=== PATIENT | male | born 1945 | race Caucasian/White ===

== ENCOUNTER → 2017-10-04 | Outpatient (CLI) | payer MEDICARE, OTHER ==
[~2017-10-04] MED LIST: ALEVE220 MG PO; COUMADIN 5 MG TA5 M1 PO; FLEXERIL PO; GLUCOSAMINE HC500 MG PO; NEURONTIN250 MG/5 M PO; PACERONE 200 M200 M1 PO; SUDOGEST PE10 MG PO
== END ==
LOC: M.WC 07:59
DX: L97.811 Non-pressure chronic ulcer of other part of right lower leg limited to breakdown of skin (principal); S51.811A Laceration without foreign body of right forearm, initial encounter; I25.10 Atherosclerotic heart disease of native coronary artery without angina pectoris; I50.9 Heart failure, unspecified; I48.91 Unspecified atrial fibrillation; E66.9 Obesity, unspecified; M19.90 Unspecified osteoarthritis, unspecified site; G62.9 Polyneuropathy, unspecified; G47.30 Sleep apnea, unspecified; F32.9 Major depressive disorder, single episode, unspecified; Z87.891 Personal history of nicotine dependence; Z86.718 Personal history of other venous thrombosis and embolism; X58.XXXA Exposure to other specified factors, initial encounter; Y93.89 Activity, other specified; Y92.89 Other specified places as the place of occurrence of the external cause; Y99.8 Other external cause status

== ENCOUNTER → 2017-10-11 | Outpatient (CLI) | payer MEDICARE, OTHER | LOC: M.WC 00:09 | DX: L97.811 Non-pressure chronic ulcer of other part of right lower leg limited to breakdown of skin (principal); S51.811A Laceration without foreign body of right forearm, initial encounter; I25.10 Atherosclerotic heart disease of native coronary artery without angina pectoris; I87.2 Venous insufficiency (chronic) (peripheral); E66.9 Obesity, unspecified; M19.90 Unspecified osteoarthritis, unspecified site; I48.91 Unspecified atrial fibrillation; I50.9 Heart failure, unspecified; G47.30 Sleep apnea, unspecified; H91.90 Unspecified hearing loss, unspecified ear; F32.9 Major depressive disorder, single episode, unspecified; Z68.30 Body mass index [BMI] 30.0-30.9, adult; Z86.718 Personal history of other venous thrombosis and embolism; Z87.891 Personal history of nicotine dependence; X58.XXXA Exposure to other specified factors, initial encounter; Y93.89 Activity, other specified; Y92.89 Other specified places as the place of occurrence of the external cause; Y99.8 Other external cause status ==

== ENCOUNTER → 2017-10-14 | Outpatient (CLI) | payer MEDICARE, OTHER | LOC: M.WC 03:57 | DX: L97.811 Non-pressure chronic ulcer of other part of right lower leg limited to breakdown of skin (principal); S51.811D Laceration without foreign body of right forearm, subsequent encounter; I87.2 Venous insufficiency (chronic) (peripheral); I25.10 Atherosclerotic heart disease of native coronary artery without angina pectoris; E66.9 Obesity, unspecified; I48.91 Unspecified atrial fibrillation; I50.9 Heart failure, unspecified; M19.90 Unspecified osteoarthritis, unspecified site; G62.9 Polyneuropathy, unspecified; G47.30 Sleep apnea, unspecified; F32.9 Major depressive disorder, single episode, unspecified; Z87.891 Personal history of nicotine dependence; Z86.718 Personal history of other venous thrombosis and embolism; X58.XXXD Exposure to other specified factors, subsequent encounter ==

== ENCOUNTER → 2017-11-01 | Outpatient (CLI) | payer MEDICARE, OTHER | LOC: M.WC 00:13 | DX: L97.811 Non-pressure chronic ulcer of other part of right lower leg limited to breakdown of skin (principal); S51.811D Laceration without foreign body of right forearm, subsequent encounter; I87.2 Venous insufficiency (chronic) (peripheral); I50.9 Heart failure, unspecified; I25.10 Atherosclerotic heart disease of native coronary artery without angina pectoris; M19.90 Unspecified osteoarthritis, unspecified site; E66.9 Obesity, unspecified; I48.91 Unspecified atrial fibrillation; G47.30 Sleep apnea, unspecified; G62.9 Polyneuropathy, unspecified; F32.9 Major depressive disorder, single episode, unspecified; Z86.718 Personal history of other venous thrombosis and embolism; Z87.891 Personal history of nicotine dependence; Z68.30 Body mass index [BMI] 30.0-30.9, adult; X58.XXXD Exposure to other specified factors, subsequent encounter ==

== ENCOUNTER → 2017-11-08 | Outpatient (CLI) | payer MEDICARE, OTHER | LOC: M.WC 01:15 | DX: L97.811 Non-pressure chronic ulcer of other part of right lower leg limited to breakdown of skin (principal); I87.2 Venous insufficiency (chronic) (peripheral); I25.10 Atherosclerotic heart disease of native coronary artery without angina pectoris; I50.9 Heart failure, unspecified; M19.90 Unspecified osteoarthritis, unspecified site; I48.91 Unspecified atrial fibrillation; E66.9 Obesity, unspecified; G62.9 Polyneuropathy, unspecified; G47.30 Sleep apnea, unspecified; F32.9 Major depressive disorder, single episode, unspecified; Z87.891 Personal history of nicotine dependence; Z86.718 Personal history of other venous thrombosis and embolism ==

== ENCOUNTER → 2017-11-15 | Outpatient (CLI) | payer MEDICARE, OTHER | LOC: M.WC 00:53 | DX: L97.811 Non-pressure chronic ulcer of other part of right lower leg limited to breakdown of skin (principal); T79.2XXD Traumatic secondary and recurrent hemorrhage and seroma, subsequent encounter; I87.2 Venous insufficiency (chronic) (peripheral); I25.10 Atherosclerotic heart disease of native coronary artery without angina pectoris; I48.91 Unspecified atrial fibrillation; I50.9 Heart failure, unspecified; E66.9 Obesity, unspecified; G62.9 Polyneuropathy, unspecified; G47.30 Sleep apnea, unspecified; M19.90 Unspecified osteoarthritis, unspecified site; F32.9 Major depressive disorder, single episode, unspecified; Z86.718 Personal history of other venous thrombosis and embolism; Z87.891 Personal history of nicotine dependence; X58.XXXD Exposure to other specified factors, subsequent encounter ==

== ENCOUNTER → 2017-11-22 | Outpatient (CLI) | payer MEDICARE, OTHER | LOC: M.WC 00:58 | DX: L97.811 Non-pressure chronic ulcer of other part of right lower leg limited to breakdown of skin (principal); I87.2 Venous insufficiency (chronic) (peripheral); I50.9 Heart failure, unspecified; I25.10 Atherosclerotic heart disease of native coronary artery without angina pectoris; E66.9 Obesity, unspecified; I48.91 Unspecified atrial fibrillation; M19.90 Unspecified osteoarthritis, unspecified site; G62.9 Polyneuropathy, unspecified; G47.30 Sleep apnea, unspecified; F32.9 Major depressive disorder, single episode, unspecified; Z86.718 Personal history of other venous thrombosis and embolism; Z87.891 Personal history of nicotine dependence; Z68.30 Body mass index [BMI] 30.0-30.9, adult ==

== ENCOUNTER → 2018-10-19 | Outpatient (CLI) | payer MEDICARE, OTHER | LOC: M.RAD 11:53 | DX: I50.42 Chronic combined systolic (congestive) and diastolic (congestive) heart failure (principal); J81.1 Chronic pulmonary edema; R06.03 Acute respiratory distress ==

== ENCOUNTER 2018-12-22 10:07 | Inpatient (IN) | payer MEDICARE, OTHER ==
[~2018-12-22] VITALS: Ht 188 cm; Wt 103.0 kg
[~2018-12-22 10:07] MED LIST changes: +NEURONTIN 400400 M1 PO
[2018-12-22 10:18] VITALS: BP 95/47
[2018-12-22] MEDS ORDERED: COZAAR 25 MG TA25 M1 PO (10:24)
[2018-12-22] MEDS ORDERED: LOPRESSOR25 PO (10:24)
[2018-12-22] MEDS ORDERED: TORSEMIDE10 MG PO (10:25)
[2018-12-22] MEDS ORDERED: SYNTHROID25 MC1 PO (10:25)
[2018-12-22] MEDS ORDERED: ALLOPURINOL 10100 M1 PO (10:25)
[2018-12-22] MEDS ORDERED: SPIRONOLACTONE25 M1 PO (10:25)
[2018-12-22] MEDS ORDERED: DIGOXIN125 MCG PO (10:35)
[2018-12-22] MEDS ORDERED: B12INJ IM (10:35)
[2018-12-22] MEDS ORDERED: DOXYCYCLINE 10100 MG PO (10:36)
[2018-12-22] MEDS ORDERED: TRAMADOL 50 MG50 MG PO (10:37)
[2018-12-22 10:38] LABS: ABSOLUTE EOSINOPHILS 0.1 thou/uL (0.0-0.7); ABSOLUTE LYMPHOCYTES 0.8 thou/uL (0.8-5.3); ABSOLUTE MONOCYTES 0.6 thou/uL (0.0-1.2); ABSOLUTE NEUTROPHILS 3.5 thou/uL (1.6-8.1); BASOPHILS 0.8 %; EOSINOPHILS 1.5 %; HEMATOCRIT 37.2 % (42.0-52.0); HEMOGLOBIN 12.5 gm/dL (14.0-18.0); LYMPHOCYTES 15.4 %; MCH 30.9 pg (26.0-34.0); MCHC 33.6 g/dL (28.0-37.0); MONOCYTES 11.2 %; MPV 7.6 fl. (7.2-11.1); NUCLEATED RBCS 0 /100WBC; PLATELET COUNT* 202 thou/uL (150-400); POLYS 71.1 %; RBC 4.04 mil/uL (4.50-6.00); RDW-CV 14.8 % (10.5-14.5); WBC 4.9 thou/uL (4.0-11.0)
[2018-12-22 10:45] LABS: CREATININE 1.3 mg/dL (0.6-1.3); POTASSIUM 3.9 mmol/L (3.5-5.1)
[2018-12-22 10:50] LABS: ALBUMIN 3.4 g/dL (3.4-5.0)
--- NOTE | 2018-12-22 10:50 | NUR ---
PT ASKED NURSE TO PLACE [facility] CATHETER BECAUSE "IT'S EASIER FOR ME". PT AND PT FURTHER EXPLAINED THAT IN PAST, HE HAD DIFFICULTY STANDING TO USE URINAL AND WOULD MAKE A MESS ALL OVER BED. NURSE EDUCATED PT AND PT OF INFECTION RISK AND NURSE NOT TO PLACE [facility] PER PROTOCOL, INABILITY TO PLACE OUT OF CONVENIENCE. PT SHOOK HER HEAD SIDE TO SIDE. PT VERBALIZED NEED TO USE RESTROOM. NURSE ASSISTED PT TO STAND ON SIDE OF BED AND USE URINAL. PT TOLERATED WELL. PT DID NOT URINATE, STATES "NOW I DON'T NEED TO". CALL LIGHT WITHIN REACH.
[2018-12-22 11:10] LABS: APTT 69.3 Seconds (25.0-31.3); INR 3.8; PROTIME 36.8 Seconds (9.20-11.50); TROPONIN-I LEVEL <0.06 ng/mL (<0.06)
[2018-12-22 11:14] LABS: URINE BILIRUBIN NEGATIVE (Negative); URINE BLOOD NEGATIVE (Negative); URINE CLARITY CLEAR; URINE COLOR YELLOW; URINE GLUCOSE-RANDOM NEGATIVE (Negative); URINE KETONES NEGATIVE (Negative); URINE LEUKOCYTES-REFLEX NEGATIVE (Negative); URINE NITRITE-REFLEX NEGATIVE (Negative); URINE PROTEIN NEGATIVE (Negative); URINE SPECIFIC GRAVITY 1.015 (1.005-1.030); URINE UROBILINOGEN 0.2 E.U./dl (0.2-1.0)
[2018-12-22 11:58] VITALS: BP 93/51
[2018-12-22 12:45] VITALS: BP 132/106
[2018-12-22] MEDS ORDERED: ACIDOPHILUS1 EAC4 PO (18:10)
[2018-12-22] MEDS ORDERED: VITAMINC500 PO (18:10)
[2018-12-22] MEDS ORDERED: TYLENOL EXTRA500 MG PO (18:11)
--- NOTE | 2018-12-22 19:37 | NUR ---
PATIENT ARRIVED FROM ER THIS AFTERNOON. ASSESSMENT, VITALS AND HISTORY TAKEN AND DOCUMENTED. PATIENT RLE HAS 4+ PITTING EDEMA AND IS WARM AND RED. PATIENT SEEN BY WOUND CARE NURSE. PATIENT IS UP TO BEDSIDE TO USE URINAL. PATIENT HAS BEEN UP TO BATHROOM WITH STANDBY ASSIST. PATIENT HAS COMPLAINTS OF PAIN TO RLE BUT HAS DENIED NEED FOR PAIN MEDICATION SINCE ARRIVAL TO UNIT. PATIENT HAS GOOD APPETITE. PATIENT DENIES ANY NEEDS AT THIS TIME. CALL LIGHT WITHIN REACH.
[2018-12-22 21:03] VITALS: BP 91/57
[2018-12-23 00:23] VITALS: BP 104/61
[2018-12-23 03:36] VITALS: BP 110/68
--- NOTE | 2018-12-23 05:34 | NUR ---
PT/INR STILL HIGH AT 3.8 PT 36.8. RLE ELEVATED ON 3 PILLOWS EDEMA AT 4+ AND RED AND WARM TO THE TOUCH. HE DID NOT REQUEST ANY PAIN MEDS UPON ASSESSMENT. HE WAS ABLE TO SLEEP THROUGH THE NIGHT. HAD TO REVISIT THE ISSUE WITH HIS COUMADIN AND INR LEVELS/ CONTINUE VANCOMYCIN AND SCHEDULED. WILL CONTINUE TO MONITOR.
[2018-12-23 08:00] VITALS: BP 109/65
[2018-12-23 13:07] LABS: INR 3.7
[2018-12-23 16:00] VITALS: BP 118/68
--- NOTE | 2018-12-23 17:20 | NUR ---
PT UP IN ROOM WITH WALKER AND SB ASSIST. IVF INFUSING. BLE ELEVATED WHILE IN BED. PT DENIES NEED FOR PAIN MEDS. PT UPSET THAT HE IS NOT GETTING COUMADIN D/T HIS INR LEVELS BEING HIGH DESPITE BEING EDUCATED. TOLERATING PO WELL.
[2018-12-23 22:20] VITALS: BP 105/62
--- NOTE | 2018-12-24 06:48 | NUR ---
PT ALERT AND ORIENTED. VITALS STABLE RA. MEDS GIVEN ORDERED. RT LOWER LEG STILL RED AND SWOLLEN. BLEEDING FROM IV SITE, NEW IV APPLIED AND FLUID RUNNING ORDERED. DRESSING ON LT KNEE CLEAN AND DRY. HOURLY ROUNDING COMPLETED. WILL CONTINUE TO MONITOR.
[2018-12-24 08:20] VITALS: BP 87/64
[2018-12-24 08:53] LABS: INR 2.8; PROTIME 27.8 Seconds (9.20-11.50)
[2018-12-24 16:00] VITALS: BP 109/71
--- NOTE | 2018-12-24 17:31 | NUR ---
PATIENT RESTING IN BED WITH FEET ELEVATED ON PILLOWS. PATIENT IS UP STANDBY ASSIST IN ROOM. PATIENT DENIES ANY PAIN. PATIENT HAS GOOD APPETITE. PATIENT DENIES ANY NEEDS AT THIS TIME. CALL LIGHT WITHIN REACH.
[2018-12-24 21:20] VITALS: BP 104/61
[2018-12-25 04:05] LABS: INR 2.4; PROTIME 23.4 Seconds (9.20-11.50)
--- NOTE | 2018-12-25 06:13 | NUR ---
PT SLEEPING THROUGH THE NIGHT WITH HOME CPAP ON. LEGS ELEVATED ON PILLOWS. MEDS GIVEN ORDERED. PT DENIED ANY PAIN. HOURLY ROUNDING COMPLETED. WILL CONTINUE TO MONITOR.
[2018-12-25 07:50] VITALS: BP 109/61
[2018-12-25 17:00] VITALS: BP 114/63
--- NOTE | 2018-12-25 18:49 | NUR ---
PATIENT RESTING IN BED. PATIENT DENIES ANY PAIN. PATIENT IS UP WITH STANDBY ASSIST WITH WALKER. PATIENT'S RIGHT LEG REMAINS DARK PINK AND WITH 2+ EDEMA. PATIENT HAS GOOD APPETITE. PATIEN TDENIES ANY NEEDS AT THIS TIME. CALL LIGHT WITHIN REACH.
[2018-12-25 21:53] VITALS: BP 111/62
[2018-12-26 04:27] LABS: INR 2.2; PROTIME 22.2 Seconds (9.20-11.50)
--- NOTE | 2018-12-26 05:15 | NUR ---
PT SLEEPING THROUGHT THE NIGHT WITH HOME CPAP ON. VITALS STABLE. PT DENIED PAIN. MEDS GIVEN ORDERED. [employer] DRESSINGS CLEAN AND INTACT. LEGS ELEVATED ON PILLOW. IV FLUID RUNNING ORDERED. HOURLY ROUNDING COMPLETED. WILL CONTINUE TO MONITOR.
[2018-12-26 07:30] VITALS: BP 117/68
[2018-12-26 11:23] VITALS: BP 117/68
[2018-12-26] MEDS ORDERED: DOXYCYCLINE 10100 MG PO (13:39)
[2018-12-26] MEDS ORDERED: ENOXAPARIN100 MG/11 SUBQ (14:14)
--- NOTE | 2018-12-26 14:37 | NUR ---
PATIENT DISCHARGED TO HOME AT THIS TIME WITH SPOUSE. IV DC'D. DRESSING REAPPLIED TO LEFT ELBOW. PATIENT REMINDED WHILE AT HOME TO KEEP RIGHT LEG ELEVATED. VERBALIZES UNDERSTANDING OF PAPERWORK AND SCRIPTS. PATIENT GIVEN ONE TIME LOVENOX SHOT PER ORDERS. PATIENT TAKEN OUT VIA WHEELCHAIR WITH ALL BELONGINGS.
== END 2018-12-26 14:41 | disposition home or self-care (01) | DRG 603 ==
LOC: M.ERS 10:07 → M.TBA-ER 10:57 → M.ORTHSURG 10:57
PROVIDERS: Physician Assistant; ADMIT Internal Medicine
DX: L03.115 Cellulitis of right lower limb (principal); I50.32 Chronic diastolic (congestive) heart failure; I95.9 Hypotension, unspecified; M10.9 Gout, unspecified; Z79.01 Long term (current) use of anticoagulants; Z88.1 Allergy status to other antibiotic agents; Z88.8 Allergy status to other drugs, medicaments and biological substances; Z95.0 Presence of cardiac pacemaker; Z79.899 Other long term (current) drug therapy; Z87.891 Personal history of nicotine dependence

== ENCOUNTER → 2019-01-03 | Outpatient (CLI) | payer MEDICARE, OTHER ==
[~2019-01-03] MED LIST changes: +ACIDOPHILUS1 EAC4 PO; +ALLOPURINOL 10100 M1 PO; +B12INJ IM; +COZAAR 25 MG TA25 M1 PO; +DIGOXIN125 MCG PO; +DOXYCYCLINE 10100 MG PO; +ENOXAPARIN100 MG/11 SUBQ; +LOPRESSOR25 PO; +SPIRONOLACTONE25 M1 PO; +SYNTHROID25 MC1 PO; +TORSEMIDE10 MG PO; +TRAMADOL 50 MG50 MG PO; +TYLENOL EXTRA500 MG PO; +VITAMINC500 PO
== END ==
LOC: M.WC 07:49
DX: L97.811 Non-pressure chronic ulcer of other part of right lower leg limited to breakdown of skin (principal); S81.012A Laceration without foreign body, left knee, initial encounter; G62.9 Polyneuropathy, unspecified; H91.90 Unspecified hearing loss, unspecified ear; I89.0 Lymphedema, not elsewhere classified; I25.10 Atherosclerotic heart disease of native coronary artery without angina pectoris; I50.9 Heart failure, unspecified; I48.91 Unspecified atrial fibrillation; G47.30 Sleep apnea, unspecified; M19.90 Unspecified osteoarthritis, unspecified site; F32.9 Major depressive disorder, single episode, unspecified; Z87.891 Personal history of nicotine dependence; Z86.718 Personal history of other venous thrombosis and embolism; Z95.4 Presence of other heart-valve replacement; Z95.0 Presence of cardiac pacemaker; Z96.649 Presence of unspecified artificial hip joint; X58.XXXA Exposure to other specified factors, initial encounter; Y93.89 Activity, other specified; Y92.89 Other specified places as the place of occurrence of the external cause; Y99.8 Other external cause status

== ENCOUNTER → 2019-01-10 | Outpatient (CLI) | payer MEDICARE, OTHER | LOC: M.WC 04:51 | DX: L97.811 Non-pressure chronic ulcer of other part of right lower leg limited to breakdown of skin (principal); S81.012D Laceration without foreign body, left knee, subsequent encounter; S90.822A Blister (nonthermal), left foot, initial encounter; E66.9 Obesity, unspecified; G47.30 Sleep apnea, unspecified; H91.90 Unspecified hearing loss, unspecified ear; I25.10 Atherosclerotic heart disease of native coronary artery without angina pectoris; I48.91 Unspecified atrial fibrillation; I89.0 Lymphedema, not elsewhere classified; I50.9 Heart failure, unspecified; G62.9 Polyneuropathy, unspecified; M19.90 Unspecified osteoarthritis, unspecified site; F32.9 Major depressive disorder, single episode, unspecified; Z86.718 Personal history of other venous thrombosis and embolism; Z87.891 Personal history of nicotine dependence; W19.XXXA Unspecified fall, initial encounter; Y93.89 Activity, other specified; Y92.89 Other specified places as the place of occurrence of the external cause; Y99.8 Other external cause status ==

== ENCOUNTER → 2019-01-13 | Outpatient (CLI) | payer MEDICARE, OTHER | LOC: M.WC 09:50 | DX: L97.811 Non-pressure chronic ulcer of other part of right lower leg limited to breakdown of skin (principal); S81.012D Laceration without foreign body, left knee, subsequent encounter; S90.822D Blister (nonthermal), left foot, subsequent encounter; E66.9 Obesity, unspecified; I89.0 Lymphedema, not elsewhere classified; I87.2 Venous insufficiency (chronic) (peripheral); I25.10 Atherosclerotic heart disease of native coronary artery without angina pectoris; I48.91 Unspecified atrial fibrillation; I50.9 Heart failure, unspecified; H91.90 Unspecified hearing loss, unspecified ear; G47.30 Sleep apnea, unspecified; M19.90 Unspecified osteoarthritis, unspecified site; F32.9 Major depressive disorder, single episode, unspecified; Z86.718 Personal history of other venous thrombosis and embolism; Z87.891 Personal history of nicotine dependence; Z95.810 Presence of automatic (implantable) cardiac defibrillator; W19.XXXD Unspecified fall, subsequent encounter ==

== ENCOUNTER → 2019-01-17 | Outpatient (CLI) | payer MEDICARE, OTHER | LOC: M.WC 05:00 | DX: L97.811 Non-pressure chronic ulcer of other part of right lower leg limited to breakdown of skin (principal); I87.2 Venous insufficiency (chronic) (peripheral); S81.012D Laceration without foreign body, left knee, subsequent encounter; S81.011D Laceration without foreign body, right knee, subsequent encounter; S90.822D Blister (nonthermal), left foot, subsequent encounter; L03.116 Cellulitis of left lower limb; I89.0 Lymphedema, not elsewhere classified; E66.9 Obesity, unspecified; I50.9 Heart failure, unspecified; I48.91 Unspecified atrial fibrillation; I25.10 Atherosclerotic heart disease of native coronary artery without angina pectoris; G62.9 Polyneuropathy, unspecified; G47.30 Sleep apnea, unspecified; H91.90 Unspecified hearing loss, unspecified ear; M19.90 Unspecified osteoarthritis, unspecified site; F32.9 Major depressive disorder, single episode, unspecified; Z86.718 Personal history of other venous thrombosis and embolism; Z87.891 Personal history of nicotine dependence; W19.XXXD Unspecified fall, subsequent encounter ==

== ENCOUNTER → 2019-01-26 | Outpatient (CLI) | payer MEDICARE, OTHER | LOC: M.WC 04:32 | DX: L97.811 Non-pressure chronic ulcer of other part of right lower leg limited to breakdown of skin (principal); S81.012D Laceration without foreign body, left knee, subsequent encounter; S90.822D Blister (nonthermal), left foot, subsequent encounter; S81.011D Laceration without foreign body, right knee, subsequent encounter; I89.0 Lymphedema, not elsewhere classified; I48.91 Unspecified atrial fibrillation; I50.9 Heart failure, unspecified; L03.116 Cellulitis of left lower limb; I25.10 Atherosclerotic heart disease of native coronary artery without angina pectoris; E66.9 Obesity, unspecified; M19.90 Unspecified osteoarthritis, unspecified site; G47.30 Sleep apnea, unspecified; F32.9 Major depressive disorder, single episode, unspecified; Z87.891 Personal history of nicotine dependence; Z68.29 Body mass index [BMI] 29.0-29.9, adult; Z86.718 Personal history of other venous thrombosis and embolism; X58.XXXD Exposure to other specified factors, subsequent encounter ==

== ENCOUNTER → 2019-01-31 | Outpatient (CLI) | payer MEDICARE, OTHER | LOC: M.WC 05:17 | DX: S81.011D Laceration without foreign body, right knee, subsequent encounter (principal); S51.011A Laceration without foreign body of right elbow, initial encounter; S90.822D Blister (nonthermal), left foot, subsequent encounter; S80.12XA Contusion of left lower leg, initial encounter; L03.116 Cellulitis of left lower limb; I89.0 Lymphedema, not elsewhere classified; I25.10 Atherosclerotic heart disease of native coronary artery without angina pectoris; E66.9 Obesity, unspecified; G62.9 Polyneuropathy, unspecified; G47.30 Sleep apnea, unspecified; H91.90 Unspecified hearing loss, unspecified ear; I48.91 Unspecified atrial fibrillation; I50.9 Heart failure, unspecified; M19.90 Unspecified osteoarthritis, unspecified site; F32.9 Major depressive disorder, single episode, unspecified; Z87.891 Personal history of nicotine dependence; Z86.718 Personal history of other venous thrombosis and embolism; Z68.29 Body mass index [BMI] 29.0-29.9, adult; W19.XXXA Unspecified fall, initial encounter; Y93.89 Activity, other specified; Y92.89 Other specified places as the place of occurrence of the external cause; Y99.8 Other external cause status ==

== ENCOUNTER → 2019-02-07 | Outpatient (CLI) | payer MEDICARE, OTHER | LOC: M.WC 05:12 | DX: S81.011D Laceration without foreign body, right knee, subsequent encounter (principal); S51.011D Laceration without foreign body of right elbow, subsequent encounter; S90.822D Blister (nonthermal), left foot, subsequent encounter; S80.12XD Contusion of left lower leg, subsequent encounter; E66.9 Obesity, unspecified; H91.90 Unspecified hearing loss, unspecified ear; G47.30 Sleep apnea, unspecified; G62.9 Polyneuropathy, unspecified; I48.91 Unspecified atrial fibrillation; I25.10 Atherosclerotic heart disease of native coronary artery without angina pectoris; I50.9 Heart failure, unspecified; I89.0 Lymphedema, not elsewhere classified; M19.90 Unspecified osteoarthritis, unspecified site; F32.9 Major depressive disorder, single episode, unspecified; Z86.718 Personal history of other venous thrombosis and embolism; Z87.891 Personal history of nicotine dependence; W19.XXXD Unspecified fall, subsequent encounter ==

== ENCOUNTER → 2019-02-14 | Outpatient (CLI) | payer MEDICARE, OTHER | LOC: M.WC 05:00 | DX: S81.011D Laceration without foreign body, right knee, subsequent encounter (principal); E66.9 Obesity, unspecified; G62.9 Polyneuropathy, unspecified; G47.30 Sleep apnea, unspecified; H91.90 Unspecified hearing loss, unspecified ear; I25.10 Atherosclerotic heart disease of native coronary artery without angina pectoris; I48.91 Unspecified atrial fibrillation; I50.9 Heart failure, unspecified; I89.0 Lymphedema, not elsewhere classified; M19.90 Unspecified osteoarthritis, unspecified site; F32.9 Major depressive disorder, single episode, unspecified; Z87.891 Personal history of nicotine dependence; Z86.718 Personal history of other venous thrombosis and embolism; Z95.810 Presence of automatic (implantable) cardiac defibrillator; W19.XXXD Unspecified fall, subsequent encounter ==

== ENCOUNTER → 2019-03-16 | Outpatient (CLI) | payer MEDICARE, OTHER | LOC: M.WC 05:01 | DX: S91.012A Laceration without foreign body, left ankle, initial encounter (principal); S81.801D Unspecified open wound, right lower leg, subsequent encounter; S91.302D Unspecified open wound, left foot, subsequent encounter; S51.801D Unspecified open wound of right forearm, subsequent encounter; I89.0 Lymphedema, not elsewhere classified; E66.9 Obesity, unspecified; G62.9 Polyneuropathy, unspecified; G47.30 Sleep apnea, unspecified; H91.90 Unspecified hearing loss, unspecified ear; I48.91 Unspecified atrial fibrillation; I25.10 Atherosclerotic heart disease of native coronary artery without angina pectoris; I50.9 Heart failure, unspecified; M19.90 Unspecified osteoarthritis, unspecified site; F32.9 Major depressive disorder, single episode, unspecified; Z87.891 Personal history of nicotine dependence; W19.XXXA Unspecified fall, initial encounter; Y93.89 Activity, other specified; Y92.89 Other specified places as the place of occurrence of the external cause; Y99.8 Other external cause status ==

== ENCOUNTER → 2019-03-23 | Outpatient (CLI) | payer MEDICARE, OTHER | LOC: M.WC 03-22 09:00 | DX: S91.002D Unspecified open wound, left ankle, subsequent encounter (principal); I89.0 Lymphedema, not elsewhere classified; I87.2 Venous insufficiency (chronic) (peripheral); I50.9 Heart failure, unspecified; I48.91 Unspecified atrial fibrillation; I25.10 Atherosclerotic heart disease of native coronary artery without angina pectoris; E66.9 Obesity, unspecified; M19.90 Unspecified osteoarthritis, unspecified site; G62.9 Polyneuropathy, unspecified; G47.30 Sleep apnea, unspecified; F32.9 Major depressive disorder, single episode, unspecified; Z86.718 Personal history of other venous thrombosis and embolism; Z87.891 Personal history of nicotine dependence; X58.XXXD Exposure to other specified factors, subsequent encounter ==

== ENCOUNTER → 2019-03-28 | Outpatient (CLI) | payer MEDICARE, OTHER | LOC: M.WC 04:51 | DX: S91.002D Unspecified open wound, left ankle, subsequent encounter (principal); S81.801D Unspecified open wound, right lower leg, subsequent encounter; S91.302D Unspecified open wound, left foot, subsequent encounter; S51.801D Unspecified open wound of right forearm, subsequent encounter; I89.0 Lymphedema, not elsewhere classified; I48.91 Unspecified atrial fibrillation; I50.9 Heart failure, unspecified; I25.10 Atherosclerotic heart disease of native coronary artery without angina pectoris; E66.9 Obesity, unspecified; H91.90 Unspecified hearing loss, unspecified ear; G62.9 Polyneuropathy, unspecified; G47.30 Sleep apnea, unspecified; M19.90 Unspecified osteoarthritis, unspecified site; F32.9 Major depressive disorder, single episode, unspecified; Z86.718 Personal history of other venous thrombosis and embolism; Z87.891 Personal history of nicotine dependence; W22.8XXD Striking against or struck by other objects, subsequent encounter ==

== ENCOUNTER → 2019-03-31 | Outpatient (CLI) | payer MEDICARE, OTHER | LOC: M.WC 04:56 | DX: S91.012D Laceration without foreign body, left ankle, subsequent encounter (principal); S81.801D Unspecified open wound, right lower leg, subsequent encounter; S91.302D Unspecified open wound, left foot, subsequent encounter; S51.801D Unspecified open wound of right forearm, subsequent encounter; I89.0 Lymphedema, not elsewhere classified; E66.9 Obesity, unspecified; G47.30 Sleep apnea, unspecified; G62.9 Polyneuropathy, unspecified; H91.90 Unspecified hearing loss, unspecified ear; I87.8 Other specified disorders of veins; I25.10 Atherosclerotic heart disease of native coronary artery without angina pectoris; I48.91 Unspecified atrial fibrillation; I50.9 Heart failure, unspecified; M19.90 Unspecified osteoarthritis, unspecified site; F32.9 Major depressive disorder, single episode, unspecified; Z86.718 Personal history of other venous thrombosis and embolism; Z87.891 Personal history of nicotine dependence ==

== ENCOUNTER → 2019-04-06 | Outpatient (CLI) | payer MEDICARE, OTHER | LOC: M.WC 01:43 | DX: S51.812A Laceration without foreign body of left forearm, initial encounter (principal); S51.811A Laceration without foreign body of right forearm, initial encounter; S51.011A Laceration without foreign body of right elbow, initial encounter; S91.002D Unspecified open wound, left ankle, subsequent encounter; I89.0 Lymphedema, not elsewhere classified; I25.10 Atherosclerotic heart disease of native coronary artery without angina pectoris; I48.91 Unspecified atrial fibrillation; I50.9 Heart failure, unspecified; E66.9 Obesity, unspecified; H91.90 Unspecified hearing loss, unspecified ear; G62.9 Polyneuropathy, unspecified; G47.30 Sleep apnea, unspecified; M19.90 Unspecified osteoarthritis, unspecified site; F32.9 Major depressive disorder, single episode, unspecified; Z86.718 Personal history of other venous thrombosis and embolism; Z87.891 Personal history of nicotine dependence; W19.XXXA Unspecified fall, initial encounter; Y93.89 Activity, other specified; Y92.89 Other specified places as the place of occurrence of the external cause; Y99.8 Other external cause status ==

== ENCOUNTER → 2019-04-13 | Outpatient (CLI) | payer MEDICARE, OTHER | LOC: M.WC 08:58 | DX: S51.812D Laceration without foreign body of left forearm, subsequent encounter (principal); S51.811D Laceration without foreign body of right forearm, subsequent encounter; S51.011D Laceration without foreign body of right elbow, subsequent encounter; S91.002D Unspecified open wound, left ankle, subsequent encounter; S81.801D Unspecified open wound, right lower leg, subsequent encounter; S91.302D Unspecified open wound, left foot, subsequent encounter; I89.0 Lymphedema, not elsewhere classified; E66.9 Obesity, unspecified; G62.9 Polyneuropathy, unspecified; G47.30 Sleep apnea, unspecified; H91.90 Unspecified hearing loss, unspecified ear; I25.10 Atherosclerotic heart disease of native coronary artery without angina pectoris; I48.91 Unspecified atrial fibrillation; I50.9 Heart failure, unspecified; M19.90 Unspecified osteoarthritis, unspecified site; F32.9 Major depressive disorder, single episode, unspecified; Z87.891 Personal history of nicotine dependence; Z86.718 Personal history of other venous thrombosis and embolism; Z95.810 Presence of automatic (implantable) cardiac defibrillator; W19.XXXD Unspecified fall, subsequent encounter ==

== ENCOUNTER → 2019-04-20 | Outpatient (CLI) | payer MEDICARE, OTHER | LOC: M.WC 04:04 | DX: S51.812D Laceration without foreign body of left forearm, subsequent encounter (principal); S51.811D Laceration without foreign body of right forearm, subsequent encounter; S51.011D Laceration without foreign body of right elbow, subsequent encounter; S81.011A Laceration without foreign body, right knee, initial encounter; H91.90 Unspecified hearing loss, unspecified ear; I89.0 Lymphedema, not elsewhere classified; I25.10 Atherosclerotic heart disease of native coronary artery without angina pectoris; I48.91 Unspecified atrial fibrillation; I50.9 Heart failure, unspecified; E66.9 Obesity, unspecified; G47.30 Sleep apnea, unspecified; G62.9 Polyneuropathy, unspecified; M19.90 Unspecified osteoarthritis, unspecified site; F32.9 Major depressive disorder, single episode, unspecified; Z87.891 Personal history of nicotine dependence; Z86.718 Personal history of other venous thrombosis and embolism; W19.XXXD Unspecified fall, subsequent encounter; X58.XXXA Exposure to other specified factors, initial encounter; Y99.8 Other external cause status; Y93.02 Activity, running; Y92.39 Other specified sports and athletic area as the place of occurrence of the external cause ==

== ENCOUNTER → 2019-04-27 | Outpatient (CLI) | payer MEDICARE, OTHER | LOC: M.WC 01:50 | DX: S51.011D Laceration without foreign body of right elbow, subsequent encounter (principal); S81.001D Unspecified open wound, right knee, subsequent encounter; E66.9 Obesity, unspecified; I25.10 Atherosclerotic heart disease of native coronary artery without angina pectoris; I89.0 Lymphedema, not elsewhere classified; I48.91 Unspecified atrial fibrillation; I50.9 Heart failure, unspecified; G47.30 Sleep apnea, unspecified; G62.9 Polyneuropathy, unspecified; H91.90 Unspecified hearing loss, unspecified ear; M19.90 Unspecified osteoarthritis, unspecified site; F32.9 Major depressive disorder, single episode, unspecified; Z86.718 Personal history of other venous thrombosis and embolism; Z68.29 Body mass index [BMI] 29.0-29.9, adult; Z87.891 Personal history of nicotine dependence; W19.XXXD Unspecified fall, subsequent encounter ==

== ENCOUNTER → 2019-05-04 | Outpatient (CLI) | payer MEDICARE, OTHER | LOC: M.WC 04:09 | DX: S51.011D Laceration without foreign body of right elbow, subsequent encounter (principal); S81.802D Unspecified open wound, left lower leg, subsequent encounter; S81.801D Unspecified open wound, right lower leg, subsequent encounter; I89.0 Lymphedema, not elsewhere classified; I25.10 Atherosclerotic heart disease of native coronary artery without angina pectoris; E66.9 Obesity, unspecified; G62.9 Polyneuropathy, unspecified; G47.30 Sleep apnea, unspecified; H91.90 Unspecified hearing loss, unspecified ear; I48.91 Unspecified atrial fibrillation; I50.9 Heart failure, unspecified; M19.90 Unspecified osteoarthritis, unspecified site; F32.9 Major depressive disorder, single episode, unspecified; Z87.891 Personal history of nicotine dependence; Z86.718 Personal history of other venous thrombosis and embolism ==

== ENCOUNTER → 2019-09-22 | Outpatient (CLI) | payer MEDICARE, OTHER | LOC: M.WC 05:12 | PROVIDERS: ATTEND Family Medicine | DX: S81.012A Laceration without foreign body, left knee, initial encounter (principal); I87.312 Chronic venous hypertension (idiopathic) with ulcer of left lower extremity; L97.821 Non-pressure chronic ulcer of other part of left lower leg limited to breakdown of skin; S81.812A Laceration without foreign body, left lower leg, initial encounter; S71.112A Laceration without foreign body, left thigh, initial encounter; G62.9 Polyneuropathy, unspecified; M19.90 Unspecified osteoarthritis, unspecified site; I50.9 Heart failure, unspecified; I25.10 Atherosclerotic heart disease of native coronary artery without angina pectoris; H91.90 Unspecified hearing loss, unspecified ear; E66.9 Obesity, unspecified; F32.9 Major depressive disorder, single episode, unspecified; Z68.26 Body mass index [BMI] 26.0-26.9, adult; Z95.2 Presence of prosthetic heart valve; Z95.810 Presence of automatic (implantable) cardiac defibrillator; Z87.891 Personal history of nicotine dependence; Z86.718 Personal history of other venous thrombosis and embolism; I48.91 Unspecified atrial fibrillation; G47.30 Sleep apnea, unspecified; Z96.649 Presence of unspecified artificial hip joint; W19.XXXA Unspecified fall, initial encounter; Y93.89 Activity, other specified; Y92.89 Other specified places as the place of occurrence of the external cause; Y99.8 Other external cause status ==

== ENCOUNTER → 2019-09-25 | Outpatient (CLI) | payer MEDICARE, OTHER | LOC: M.ULTRA 16:00 | PROVIDERS: ATTEND Family Medicine | DX: R10.31 Right lower quadrant pain (principal) ==

== ENCOUNTER → 2019-09-29 | Outpatient (CLI) | payer MEDICARE, OTHER | LOC: M.WC 00:59 | PROVIDERS: ATTEND Family Medicine | DX: I87.312 Chronic venous hypertension (idiopathic) with ulcer of left lower extremity (principal); L97.821 Non-pressure chronic ulcer of other part of left lower leg limited to breakdown of skin; S71.112D Laceration without foreign body, left thigh, subsequent encounter; S81.012D Laceration without foreign body, left knee, subsequent encounter; S81.812D Laceration without foreign body, left lower leg, subsequent encounter; I25.10 Atherosclerotic heart disease of native coronary artery without angina pectoris; G62.9 Polyneuropathy, unspecified; G47.30 Sleep apnea, unspecified; H91.90 Unspecified hearing loss, unspecified ear; E66.9 Obesity, unspecified; I48.91 Unspecified atrial fibrillation; I11.0 Hypertensive heart disease with heart failure; I50.9 Heart failure, unspecified; M19.90 Unspecified osteoarthritis, unspecified site; F32.9 Major depressive disorder, single episode, unspecified; Z86.718 Personal history of other venous thrombosis and embolism; Z95.810 Presence of automatic (implantable) cardiac defibrillator; Z87.891 Personal history of nicotine dependence; W19.XXXD Unspecified fall, subsequent encounter ==

== ENCOUNTER → 2019-10-06 | Outpatient (CLI) | payer MEDICARE, OTHER | LOC: M.WC 03:41 | PROVIDERS: ATTEND Family Medicine | DX: I87.312 Chronic venous hypertension (idiopathic) with ulcer of left lower extremity (principal); L97.812 Non-pressure chronic ulcer of other part of right lower leg with fat layer exposed; S71.112D Laceration without foreign body, left thigh, subsequent encounter; S41.102A Unspecified open wound of left upper arm, initial encounter; I25.10 Atherosclerotic heart disease of native coronary artery without angina pectoris; M19.90 Unspecified osteoarthritis, unspecified site; H91.90 Unspecified hearing loss, unspecified ear; E66.9 Obesity, unspecified; G62.9 Polyneuropathy, unspecified; I48.91 Unspecified atrial fibrillation; I50.9 Heart failure, unspecified; G47.30 Sleep apnea, unspecified; F32.9 Major depressive disorder, single episode, unspecified; Z86.718 Personal history of other venous thrombosis and embolism; Z87.891 Personal history of nicotine dependence; Z68.26 Body mass index [BMI] 26.0-26.9, adult; Z79.01 Long term (current) use of anticoagulants; W19.XXXD Unspecified fall, subsequent encounter; X58.XXXA Exposure to other specified factors, initial encounter; Y93.89 Activity, other specified; Y92.89 Other specified places as the place of occurrence of the external cause; Y99.8 Other external cause status ==

== ENCOUNTER → 2019-10-12 | Outpatient (CLI) | payer MEDICARE, OTHER | LOC: M.WC 02:24 | PROVIDERS: ATTEND Family Medicine | DX: I87.312 Chronic venous hypertension (idiopathic) with ulcer of left lower extremity (principal); L97.821 Non-pressure chronic ulcer of other part of left lower leg limited to breakdown of skin; S81.812D Laceration without foreign body, left lower leg, subsequent encounter; S51.012D Laceration without foreign body of left elbow, subsequent encounter; S61.511A Laceration without foreign body of right wrist, initial encounter; E66.9 Obesity, unspecified; H91.90 Unspecified hearing loss, unspecified ear; G47.30 Sleep apnea, unspecified; G62.9 Polyneuropathy, unspecified; I25.10 Atherosclerotic heart disease of native coronary artery without angina pectoris; I48.91 Unspecified atrial fibrillation; I50.9 Heart failure, unspecified; M19.90 Unspecified osteoarthritis, unspecified site; F32.9 Major depressive disorder, single episode, unspecified; Z87.891 Personal history of nicotine dependence; Z86.718 Personal history of other venous thrombosis and embolism; W19.XXXD Unspecified fall, subsequent encounter; W19.XXXA Unspecified fall, initial encounter; Y93.89 Activity, other specified; Y92.89 Other specified places as the place of occurrence of the external cause; Y99.8 Other external cause status ==

== ENCOUNTER → 2019-10-20 | Outpatient (CLI) | payer MEDICARE, OTHER | LOC: M.WC 05:29 | PROVIDERS: ATTEND Family Medicine | DX: I87.312 Chronic venous hypertension (idiopathic) with ulcer of left lower extremity (principal); L97.821 Non-pressure chronic ulcer of other part of left lower leg limited to breakdown of skin; S41.102D Unspecified open wound of left upper arm, subsequent encounter; S41.101D Unspecified open wound of right upper arm, subsequent encounter; S81.812D Laceration without foreign body, left lower leg, subsequent encounter; S51.012D Laceration without foreign body of left elbow, subsequent encounter; S61.511D Laceration without foreign body of right wrist, subsequent encounter; I25.10 Atherosclerotic heart disease of native coronary artery without angina pectoris; M19.90 Unspecified osteoarthritis, unspecified site; G62.9 Polyneuropathy, unspecified; I48.91 Unspecified atrial fibrillation; I50.9 Heart failure, unspecified; G47.30 Sleep apnea, unspecified; E66.9 Obesity, unspecified; F32.9 Major depressive disorder, single episode, unspecified; Z86.718 Personal history of other venous thrombosis and embolism; Z87.891 Personal history of nicotine dependence; Z68.26 Body mass index [BMI] 26.0-26.9, adult; Z79.01 Long term (current) use of anticoagulants; W19.XXXD Unspecified fall, subsequent encounter ==

== ENCOUNTER → 2019-10-23 | Outpatient (CLI) | payer MEDICARE, OTHER | LOC: M.WC 08:30 | PROVIDERS: ATTEND Surgery | DX: I87.312 Chronic venous hypertension (idiopathic) with ulcer of left lower extremity (principal); L97.821 Non-pressure chronic ulcer of other part of left lower leg limited to breakdown of skin; S41.112A Laceration without foreign body of left upper arm, initial encounter; S41.012A Laceration without foreign body of left shoulder, initial encounter; S51.012A Laceration without foreign body of left elbow, initial encounter; S51.812A Laceration without foreign body of left forearm, initial encounter; S81.012A Laceration without foreign body, left knee, initial encounter; S81.812A Laceration without foreign body, left lower leg, initial encounter; I25.10 Atherosclerotic heart disease of native coronary artery without angina pectoris; E66.9 Obesity, unspecified; G47.30 Sleep apnea, unspecified; G62.9 Polyneuropathy, unspecified; H91.90 Unspecified hearing loss, unspecified ear; I48.91 Unspecified atrial fibrillation; I11.0 Hypertensive heart disease with heart failure; I50.9 Heart failure, unspecified; M19.90 Unspecified osteoarthritis, unspecified site; F32.9 Major depressive disorder, single episode, unspecified; Z86.718 Personal history of other venous thrombosis and embolism; Z87.891 Personal history of nicotine dependence; X58.XXXA Exposure to other specified factors, initial encounter; Y93.89 Activity, other specified; Y92.89 Other specified places as the place of occurrence of the external cause; Y99.8 Other external cause status ==

== ENCOUNTER → 2019-10-30 | Outpatient (CLI) | payer MEDICARE, OTHER | LOC: M.WC 02:54 | DX: I87.312 Chronic venous hypertension (idiopathic) with ulcer of left lower extremity (principal); L97.822 Non-pressure chronic ulcer of other part of left lower leg with fat layer exposed; S41.012D Laceration without foreign body of left shoulder, subsequent encounter; S41.112D Laceration without foreign body of left upper arm, subsequent encounter; S51.012D Laceration without foreign body of left elbow, subsequent encounter; S51.812D Laceration without foreign body of left forearm, subsequent encounter; S81.012D Laceration without foreign body, left knee, subsequent encounter; E66.9 Obesity, unspecified; H91.90 Unspecified hearing loss, unspecified ear; G62.9 Polyneuropathy, unspecified; G47.30 Sleep apnea, unspecified; I11.0 Hypertensive heart disease with heart failure; I50.9 Heart failure, unspecified; I48.91 Unspecified atrial fibrillation; I25.10 Atherosclerotic heart disease of native coronary artery without angina pectoris; M19.90 Unspecified osteoarthritis, unspecified site; F32.9 Major depressive disorder, single episode, unspecified; Z86.718 Personal history of other venous thrombosis and embolism; Z87.891 Personal history of nicotine dependence; X58.XXXD Exposure to other specified factors, subsequent encounter ==

== ENCOUNTER → 2019-11-06 | Outpatient (CLI) | payer MEDICARE, OTHER | LOC: M.WC 08:30 | PROVIDERS: ATTEND Surgery | DX: I87.312 Chronic venous hypertension (idiopathic) with ulcer of left lower extremity (principal); L97.822 Non-pressure chronic ulcer of other part of left lower leg with fat layer exposed; S41.012D Laceration without foreign body of left shoulder, subsequent encounter; S41.112D Laceration without foreign body of left upper arm, subsequent encounter; S51.012D Laceration without foreign body of left elbow, subsequent encounter; S51.812D Laceration without foreign body of left forearm, subsequent encounter; S81.812D Laceration without foreign body, left lower leg, subsequent encounter; E66.9 Obesity, unspecified; H91.90 Unspecified hearing loss, unspecified ear; G62.9 Polyneuropathy, unspecified; G47.30 Sleep apnea, unspecified; I25.10 Atherosclerotic heart disease of native coronary artery without angina pectoris; I48.91 Unspecified atrial fibrillation; I11.0 Hypertensive heart disease with heart failure; I50.9 Heart failure, unspecified; M19.90 Unspecified osteoarthritis, unspecified site; F32.9 Major depressive disorder, single episode, unspecified; Z68.26 Body mass index [BMI] 26.0-26.9, adult; Z86.718 Personal history of other venous thrombosis and embolism; Z87.891 Personal history of nicotine dependence; X58.XXXD Exposure to other specified factors, subsequent encounter ==

== ENCOUNTER → 2019-11-13 | Outpatient (CLI) | payer MEDICARE, OTHER | LOC: M.WC 01:01 | PROVIDERS: ATTEND Surgery | DX: I87.312 Chronic venous hypertension (idiopathic) with ulcer of left lower extremity (principal); S81.812D Laceration without foreign body, left lower leg, subsequent encounter; L97.822 Non-pressure chronic ulcer of other part of left lower leg with fat layer exposed; E66.9 Obesity, unspecified; H91.90 Unspecified hearing loss, unspecified ear; G62.9 Polyneuropathy, unspecified; G47.30 Sleep apnea, unspecified; I25.10 Atherosclerotic heart disease of native coronary artery without angina pectoris; I48.91 Unspecified atrial fibrillation; I50.9 Heart failure, unspecified; M19.90 Unspecified osteoarthritis, unspecified site; F32.9 Major depressive disorder, single episode, unspecified; Z87.891 Personal history of nicotine dependence; Z86.718 Personal history of other venous thrombosis and embolism ==

== ENCOUNTER → 2019-11-20 | Outpatient (CLI) | payer MEDICARE, OTHER | LOC: M.WC 02:46 | PROVIDERS: ATTEND Family Medicine | DX: T79.8XXD Other early complications of trauma, subsequent encounter (principal); S81.812A Laceration without foreign body, left lower leg, initial encounter; S41.102A Unspecified open wound of left upper arm, initial encounter; I87.312 Chronic venous hypertension (idiopathic) with ulcer of left lower extremity; L97.822 Non-pressure chronic ulcer of other part of left lower leg with fat layer exposed; I25.10 Atherosclerotic heart disease of native coronary artery without angina pectoris; M19.90 Unspecified osteoarthritis, unspecified site; G62.9 Polyneuropathy, unspecified; I48.91 Unspecified atrial fibrillation; I50.9 Heart failure, unspecified; G47.30 Sleep apnea, unspecified; E66.9 Obesity, unspecified; F32.9 Major depressive disorder, single episode, unspecified; Z68.26 Body mass index [BMI] 26.0-26.9, adult; Z86.718 Personal history of other venous thrombosis and embolism; Z87.891 Personal history of nicotine dependence; Z79.01 Long term (current) use of anticoagulants; X58.XXXA Exposure to other specified factors, initial encounter; X58.XXXD Exposure to other specified factors, subsequent encounter; Y93.89 Activity, other specified; Y92.89 Other specified places as the place of occurrence of the external cause; Y99.8 Other external cause status ==

== ENCOUNTER → 2019-11-27 | Outpatient (CLI) | payer MEDICARE, OTHER | LOC: M.WC 04:16 | PROVIDERS: ATTEND Surgery | DX: I87.312 Chronic venous hypertension (idiopathic) with ulcer of left lower extremity (principal); L97.822 Non-pressure chronic ulcer of other part of left lower leg with fat layer exposed; S81.812D Laceration without foreign body, left lower leg, subsequent encounter; S41.119D Laceration without foreign body of unspecified upper arm, subsequent encounter; S41.102D Unspecified open wound of left upper arm, subsequent encounter; H91.90 Unspecified hearing loss, unspecified ear; E66.9 Obesity, unspecified; G62.9 Polyneuropathy, unspecified; G47.30 Sleep apnea, unspecified; I48.91 Unspecified atrial fibrillation; I25.10 Atherosclerotic heart disease of native coronary artery without angina pectoris; I11.0 Hypertensive heart disease with heart failure; I50.9 Heart failure, unspecified; M19.90 Unspecified osteoarthritis, unspecified site; F32.9 Major depressive disorder, single episode, unspecified; Z87.891 Personal history of nicotine dependence; Z86.718 Personal history of other venous thrombosis and embolism; X58.XXXD Exposure to other specified factors, subsequent encounter ==

== ENCOUNTER → 2019-12-04 | Outpatient (CLI) | payer MEDICARE, OTHER | LOC: M.WC 07:14 | PROVIDERS: ATTEND Surgery | DX: I87.312 Chronic venous hypertension (idiopathic) with ulcer of left lower extremity (principal); L97.822 Non-pressure chronic ulcer of other part of left lower leg with fat layer exposed; S41.119D Laceration without foreign body of unspecified upper arm, subsequent encounter; S81.812D Laceration without foreign body, left lower leg, subsequent encounter; I25.10 Atherosclerotic heart disease of native coronary artery without angina pectoris; M19.90 Unspecified osteoarthritis, unspecified site; E66.9 Obesity, unspecified; H91.90 Unspecified hearing loss, unspecified ear; G62.9 Polyneuropathy, unspecified; G47.30 Sleep apnea, unspecified; I48.91 Unspecified atrial fibrillation; I11.0 Hypertensive heart disease with heart failure; I50.9 Heart failure, unspecified; F32.9 Major depressive disorder, single episode, unspecified; Z86.718 Personal history of other venous thrombosis and embolism; Z87.891 Personal history of nicotine dependence; X58.XXXD Exposure to other specified factors, subsequent encounter ==

== ENCOUNTER 2019-12-05 12:38 | Emergency (ER) | payer MEDICARE, OTHER ==
[~2019-12-05] VITALS: Ht 188 cm; Wt 90.3 kg
[2019-12-05 13:56] LABS: ABSOLUTE BASOPHILS 0.1 thou/uL (0.0-0.2); ABSOLUTE EOSINOPHILS 0.1 thou/uL (0.0-0.7); ABSOLUTE LYMPHOCYTES 0.8 thou/uL (0.8-5.3); ABSOLUTE MONOCYTES 0.5 thou/uL (0.0-1.2); ABSOLUTE NEUTROPHILS 2.9 thou/uL (1.6-8.1); BASOPHILS 1.3 %; EOSINOPHILS 3.3 %; HEMATOCRIT 34.1 % (42.0-52.0); HEMOGLOBIN 11.5 gm/dL (14.0-18.0); LYMPHOCYTES 18.1 %; MCHC 33.7 g/dL (28.0-37.0); MCV 91.8 fL (80.0-100.0); MONOCYTES 10.9 %; MPV 7.8 fl. (7.2-11.1); NUCLEATED RBCS 0 /100WBC; PLATELET COUNT* 181 thou/uL (150-400); POLYS 66.4 %; RBC 3.71 mil/uL (4.50-6.00); RDW-CV 14.6 % (10.5-14.5); WBC 4.4 thou/uL (4.0-11.0)
[2019-12-05 14:08] LABS: CALCIUM 8.8 mg/dL (8.5-10.1); CREATININE 1.4 mg/dL (0.6-1.3); POTASSIUM 4.7 mmol/L (3.5-5.1)
[2019-12-05 14:10] LABS: APTT 42.5 Seconds (25.0-31.3); INR 2.9; PROTIME 28.5 Seconds (9.20-11.50)
[2019-12-05 15:03] VITALS: BP 92/54
== END 2019-12-05 15:04 | disposition home or self-care (01) ==
LOC: M.ERS 12:38
PROVIDERS: Family Medicine
DX: S81.011A Laceration without foreign body, right knee, initial encounter (principal); S80.12XA Contusion of left lower leg, initial encounter; I50.9 Heart failure, unspecified; M10.9 Gout, unspecified; Z95.0 Presence of cardiac pacemaker; Z86.718 Personal history of other venous thrombosis and embolism; Z88.1 Allergy status to other antibiotic agents; Z88.8 Allergy status to other drugs, medicaments and biological substances; W25.XXXA Contact with sharp glass, initial encounter; Y93.89 Activity, other specified; Y92.89 Other specified places as the place of occurrence of the external cause; Y99.8 Other external cause status

== ENCOUNTER → 2019-12-11 | Outpatient (CLI) | payer MEDICARE, OTHER | LOC: M.WC 03:04 | PROVIDERS: ATTEND Surgery | DX: I87.312 Chronic venous hypertension (idiopathic) with ulcer of left lower extremity (principal); L97.822 Non-pressure chronic ulcer of other part of left lower leg with fat layer exposed; S81.812D Laceration without foreign body, left lower leg, subsequent encounter; S41.112D Laceration without foreign body of left upper arm, subsequent encounter; E66.9 Obesity, unspecified; G62.9 Polyneuropathy, unspecified; G47.30 Sleep apnea, unspecified; H91.90 Unspecified hearing loss, unspecified ear; I25.10 Atherosclerotic heart disease of native coronary artery without angina pectoris; I48.91 Unspecified atrial fibrillation; I50.9 Heart failure, unspecified; M19.90 Unspecified osteoarthritis, unspecified site; F32.9 Major depressive disorder, single episode, unspecified; Z87.891 Personal history of nicotine dependence; Z86.718 Personal history of other venous thrombosis and embolism; X58.XXXD Exposure to other specified factors, subsequent encounter ==

== ENCOUNTER → 2019-12-25 | Outpatient (CLI) | payer MEDICARE, OTHER | LOC: M.WC 04:03 | PROVIDERS: ATTEND Surgery | DX: I87.312 Chronic venous hypertension (idiopathic) with ulcer of left lower extremity (principal); L97.821 Non-pressure chronic ulcer of other part of left lower leg limited to breakdown of skin; S81.812D Laceration without foreign body, left lower leg, subsequent encounter; S81.811D Laceration without foreign body, right lower leg, subsequent encounter; S41.102D Unspecified open wound of left upper arm, subsequent encounter; H91.90 Unspecified hearing loss, unspecified ear; E66.9 Obesity, unspecified; G62.9 Polyneuropathy, unspecified; G47.30 Sleep apnea, unspecified; I50.9 Heart failure, unspecified; I25.10 Atherosclerotic heart disease of native coronary artery without angina pectoris; I48.91 Unspecified atrial fibrillation; M19.90 Unspecified osteoarthritis, unspecified site; F32.9 Major depressive disorder, single episode, unspecified; Z86.718 Personal history of other venous thrombosis and embolism; Z87.891 Personal history of nicotine dependence; Z68.26 Body mass index [BMI] 26.0-26.9, adult; X58.XXXD Exposure to other specified factors, subsequent encounter ==

== ENCOUNTER → 2020-01-01 | Outpatient (CLI) | payer MEDICARE, OTHER | LOC: M.WC 03:42 | PROVIDERS: ATTEND Surgery | DX: T79.8XXD Other early complications of trauma, subsequent encounter (principal); S80.811D Abrasion, right lower leg, subsequent encounter; S81.811D Laceration without foreign body, right lower leg, subsequent encounter; S81.812D Laceration without foreign body, left lower leg, subsequent encounter; I87.312 Chronic venous hypertension (idiopathic) with ulcer of left lower extremity; L97.821 Non-pressure chronic ulcer of other part of left lower leg limited to breakdown of skin; S41.119D Laceration without foreign body of unspecified upper arm, subsequent encounter; S41.102A Unspecified open wound of left upper arm, initial encounter; I25.10 Atherosclerotic heart disease of native coronary artery without angina pectoris; M19.90 Unspecified osteoarthritis, unspecified site; G62.9 Polyneuropathy, unspecified; I48.91 Unspecified atrial fibrillation; I50.9 Heart failure, unspecified; G47.30 Sleep apnea, unspecified; E66.9 Obesity, unspecified; F32.9 Major depressive disorder, single episode, unspecified; Z68.26 Body mass index [BMI] 26.0-26.9, adult; Z86.718 Personal history of other venous thrombosis and embolism; Z87.891 Personal history of nicotine dependence; X58.XXXD Exposure to other specified factors, subsequent encounter; X58.XXXA Exposure to other specified factors, initial encounter; Y93.89 Activity, other specified; Y92.89 Other specified places as the place of occurrence of the external cause; Y99.8 Other external cause status ==

== ENCOUNTER → 2020-01-08 | Outpatient (CLI) | payer MEDICARE, OTHER | LOC: M.WC 02:22 | PROVIDERS: ATTEND Surgery | DX: S81.811D Laceration without foreign body, right lower leg, subsequent encounter (principal); S41.102D Unspecified open wound of left upper arm, subsequent encounter; S41.119D Laceration without foreign body of unspecified upper arm, subsequent encounter; I87.312 Chronic venous hypertension (idiopathic) with ulcer of left lower extremity; L97.828 Non-pressure chronic ulcer of other part of left lower leg with other specified severity; I25.10 Atherosclerotic heart disease of native coronary artery without angina pectoris; E66.9 Obesity, unspecified; G62.9 Polyneuropathy, unspecified; I11.0 Hypertensive heart disease with heart failure; I50.9 Heart failure, unspecified; I48.91 Unspecified atrial fibrillation; G47.30 Sleep apnea, unspecified; H91.90 Unspecified hearing loss, unspecified ear; M19.90 Unspecified osteoarthritis, unspecified site; F32.9 Major depressive disorder, single episode, unspecified; Z86.718 Personal history of other venous thrombosis and embolism; Z87.891 Personal history of nicotine dependence; Z68.26 Body mass index [BMI] 26.0-26.9, adult; X58.XXXD Exposure to other specified factors, subsequent encounter ==

== ENCOUNTER → 2020-01-15 | Outpatient (CLI) | payer MEDICARE, OTHER | LOC: M.WC 03:42 | PROVIDERS: ATTEND Surgery | DX: S81.811D Laceration without foreign body, right lower leg, subsequent encounter (principal); S81.812D Laceration without foreign body, left lower leg, subsequent encounter; S41.102D Unspecified open wound of left upper arm, subsequent encounter; I87.312 Chronic venous hypertension (idiopathic) with ulcer of left lower extremity; L97.821 Non-pressure chronic ulcer of other part of left lower leg limited to breakdown of skin; E66.9 Obesity, unspecified; H91.90 Unspecified hearing loss, unspecified ear; G47.30 Sleep apnea, unspecified; G62.9 Polyneuropathy, unspecified; I25.10 Atherosclerotic heart disease of native coronary artery without angina pectoris; I48.91 Unspecified atrial fibrillation; I50.9 Heart failure, unspecified; M19.90 Unspecified osteoarthritis, unspecified site; F32.9 Major depressive disorder, single episode, unspecified; Z86.718 Personal history of other venous thrombosis and embolism; Z87.891 Personal history of nicotine dependence; Z68.26 Body mass index [BMI] 26.0-26.9, adult ==

== ENCOUNTER → 2020-01-22 | Outpatient (CLI) | payer MEDICARE, OTHER | LOC: M.WC 03:43 | PROVIDERS: ATTEND Surgery | DX: S81.811D Laceration without foreign body, right lower leg, subsequent encounter (principal); S81.812D Laceration without foreign body, left lower leg, subsequent encounter; S41.102D Unspecified open wound of left upper arm, subsequent encounter; I87.312 Chronic venous hypertension (idiopathic) with ulcer of left lower extremity; L97.821 Non-pressure chronic ulcer of other part of left lower leg limited to breakdown of skin; E66.9 Obesity, unspecified; G62.9 Polyneuropathy, unspecified; G47.30 Sleep apnea, unspecified; H91.90 Unspecified hearing loss, unspecified ear; I25.10 Atherosclerotic heart disease of native coronary artery without angina pectoris; I48.91 Unspecified atrial fibrillation; I50.9 Heart failure, unspecified; M19.90 Unspecified osteoarthritis, unspecified site; F32.9 Major depressive disorder, single episode, unspecified; Z86.718 Personal history of other venous thrombosis and embolism; Z87.891 Personal history of nicotine dependence; X58.XXXD Exposure to other specified factors, subsequent encounter ==

== ENCOUNTER → 2020-01-29 | Outpatient (CLI) | payer MEDICARE, OTHER | LOC: M.WC 08:03 | PROVIDERS: ATTEND Surgery | DX: S81.811D Laceration without foreign body, right lower leg, subsequent encounter (principal); S81.812D Laceration without foreign body, left lower leg, subsequent encounter; S41.102D Unspecified open wound of left upper arm, subsequent encounter; I87.312 Chronic venous hypertension (idiopathic) with ulcer of left lower extremity; L97.821 Non-pressure chronic ulcer of other part of left lower leg limited to breakdown of skin; H91.90 Unspecified hearing loss, unspecified ear; E66.9 Obesity, unspecified; G62.9 Polyneuropathy, unspecified; G47.30 Sleep apnea, unspecified; I48.91 Unspecified atrial fibrillation; I11.0 Hypertensive heart disease with heart failure; I50.9 Heart failure, unspecified; I25.10 Atherosclerotic heart disease of native coronary artery without angina pectoris; M19.90 Unspecified osteoarthritis, unspecified site; F32.9 Major depressive disorder, single episode, unspecified; Z86.718 Personal history of other venous thrombosis and embolism; Z87.891 Personal history of nicotine dependence ==

== ENCOUNTER → 2020-02-05 | Outpatient (CLI) | payer MEDICARE, OTHER | LOC: M.WC 05:34 | PROVIDERS: ATTEND Surgery | DX: S81.811D Laceration without foreign body, right lower leg, subsequent encounter (principal); S81.812D Laceration without foreign body, left lower leg, subsequent encounter; S41.112D Laceration without foreign body of left upper arm, subsequent encounter; I87.312 Chronic venous hypertension (idiopathic) with ulcer of left lower extremity; L97.821 Non-pressure chronic ulcer of other part of left lower leg limited to breakdown of skin; E66.9 Obesity, unspecified; G62.9 Polyneuropathy, unspecified; G47.30 Sleep apnea, unspecified; H91.90 Unspecified hearing loss, unspecified ear; I25.10 Atherosclerotic heart disease of native coronary artery without angina pectoris; I48.91 Unspecified atrial fibrillation; I11.0 Hypertensive heart disease with heart failure; I50.9 Heart failure, unspecified; M19.90 Unspecified osteoarthritis, unspecified site; F32.9 Major depressive disorder, single episode, unspecified; Z87.891 Personal history of nicotine dependence; Z86.718 Personal history of other venous thrombosis and embolism; X58.XXXD Exposure to other specified factors, subsequent encounter ==

== ENCOUNTER → 2020-02-12 | Outpatient (CLI) | payer MEDICARE, OTHER | LOC: M.WC 08:31 | PROVIDERS: ATTEND Surgery | DX: S81.811D Laceration without foreign body, right lower leg, subsequent encounter (principal); S81.812D Laceration without foreign body, left lower leg, subsequent encounter; S41.102D Unspecified open wound of left upper arm, subsequent encounter; I87.312 Chronic venous hypertension (idiopathic) with ulcer of left lower extremity; L97.828 Non-pressure chronic ulcer of other part of left lower leg with other specified severity; E66.9 Obesity, unspecified; G62.9 Polyneuropathy, unspecified; G47.30 Sleep apnea, unspecified; H91.90 Unspecified hearing loss, unspecified ear; I25.10 Atherosclerotic heart disease of native coronary artery without angina pectoris; I48.91 Unspecified atrial fibrillation; I50.9 Heart failure, unspecified; M19.90 Unspecified osteoarthritis, unspecified site; F32.9 Major depressive disorder, single episode, unspecified; Z86.718 Personal history of other venous thrombosis and embolism; Z87.891 Personal history of nicotine dependence; X58.XXXD Exposure to other specified factors, subsequent encounter ==